=== PATIENT | female | born 1985 | race Caucasian/White ===

== ENCOUNTER 2019-06-11 03:37 | Emergency (ER) | payer OTHER, SELFPAY ==
--- NOTE | ~2019-06-11 | CT_ITS ---
EXAMINATION: CT abdomen pelvis wo con DATE: 06/11/2019 05:24 INDICATION: Left flank pain TECHNIQUE: Computed tomography (CT) of the abdomen and pelvis was performed without intravenous contr ast. Automated exposure control and iterative reconstruction technique were employed. Exam dose: 173 .21 mGy-cm total exam DLP. COMPARISON: None. FINDINGS: The lung bases are clear of infiltrate or consolidation. 3 mm middle lobe opacity (series 4 image 1) occasional very small peripheral pleural-based opacities are noted. Normal heart size. No pericardial or pleural effusion. Status post cholecystectomy. Surgical clips are noted adjacent to the left lobe of the liver. No hepa tic, pancreatic, and adrenal or renal space-occupying mass lesion is evident. No bile duct or pancrea tic duct dilatation. The spleen is not detected. No urinary tract calculus or obstructive uropathy is noted. There is air within the nondependent bladder lumen, possibly related to recent catheterization. Anteverted uterus. Normal caliber of the abdominal aorta. No intraperitoneal or retroperitoneal or pelvic mass lesion or adenopathy or ascites is evident. There is a prominent amount of fecal material in the colon. No bowel obstruction is evident. IMPRESSION: Air in the urinary bladder, likely due to recent catheterization; recent removal of left internal urinary stent No urinary tract calculus or obstructive uropathy is detected Status post cholecystectomy Probable splenectomy Reviewed, dictated and finalized at [facility] Reviewed, dictated and finalized at [facility]. 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
[2019-06-11 03:42] VITALS: BP 127/74; PULSE 121; RESP 18; TEMP 37.3; O2SAT 100
[2019-06-11 04:13] VITALS: BP 120/71; PULSE 115; RESP 20; TEMP 38.6; O2SAT 99
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
[2019-06-11] MEDS: ACETAMINOPHEN 500 MG TABLET 1000 MG PO (04:32)
[2019-06-11 05:02] VITALS: TEMP 38.4
[2019-06-11 05:03] LABS: Basophils Percent Auto 0.3 % (0.2-1.2); Eosinophils Absolute Auto 0.1 K/mm3 (0-0.3); Eosinophils Percent Auto 0.5 % (0-4.4); Hematocrit 27.9 % (37.0-47.0); Hemoglobin 9.3 g/dL (12.0-15.0); Immature Granulocyte Absolute 0.07 K/mm3 (0.00-0.031); Immature Granulocyte Percent A 0.5 % (0-0.5); Lymphocytes Absolute Auto 1.63 K/mm3 (0.9-3.2); Lymphocytes Percent Auto 11.4 % (18.3-44.2); Mean Corpuscular HGB Conc 33.3 g/dl (32-36); Mean Corpuscular Hemoglobin 29.3 pg (26-34); Mean Platelet Volume 9.2 fl (7.4-10.4); Monocytes Absolute Auto 1.2 K/mm3 (0.1-0.6); Monocytes Percent Auto 8.6 % (2.6-8.5); Neutrophils Absolute Auto 11.2 K/mm3 (1.3-6.7); Neutrophils Percent Auto 78.7 % (45.5-73.1); Platelet Count Result 428 k/mm3 (150-375); Red Blood Count 3.17 M/mm3 (4.2-5.4); Red Cell Distribution Width 13.4 % (11.5-14.5); White Blood Count 14.3 K/mm3 (4.5-10.0)
[2019-06-11 05:16] LABS: Lactic Acid Reflex 1.1 mmol/L (0.7-2.1)
[2019-06-11 05:25] LABS: Add Urine Microscopic? YES; Appearance Urine Clear (Clear); Bacteria Urine 4+ /hpf; Bilirubin Urine Negative (Negative); Blood Urine 1+ (Negative); Color Urine Yellow (Yellow); Glucose Urine UA Negative (Negative); Ketones Urine Negative (Negative); Leukocyte Esterase Ur 3+ LEU/UL (Negative); Mucus Urine Moderate /lpf; Nitrate Urine Positive (Negative); Protein Urine 2+ mg/dL (Negative); RBC Urine 0-2 /hpf (0-2); Specific Grav Ur 1.016 (1.001-1.035); Squamous Epithelial Cell Urine Rare /hpf (Few); Urobilinogen Urine Negative mg/dL (<2.0); WBC Urine >75 /hpf
--- NOTE | 2019-06-11 05:25 | PC.NURSE ---
Patient to radiology.
[2019-06-11 05:27] LABS: Alanine Aminotransferase 26 U/L (4-35); Albumin Level 3.4 g/dL (3.5-5.1); Alkaline Phosphatase 113 U/L (38-126); Aspartate Amino Transferase 26 U/L (14-36); Bilirubin,Total 0.2 mg/dL (0.2-1.3); Blood Urea Nitrogen 7 mg/dL (7-17); Calcium 8.4 mg/dL (8.4-10.2); Carbon Dioxide 22 mmol/L (22-30); Chloride 94 mmol/L (98-107); Estimated CRCL calculation 89 ml/min; Estimated Glomerular Filt Rate > 60; Glucose 106 mg/dL (65-105); Lipase 20 U/L (23-300); Potassium 3.9 mmol/L (3.4-5.0); Sodium 129 mmol/L (137-145)
[2019-06-11] MEDS: MORPHINE SULFATE 4 MG/ML INJ IV PUSH (05:37)
[2019-06-11] MEDS: ONDANSETRON INJ 4 MG/2 ML VIAL IV PUSH (05:37)
[2019-06-11 05:48] VITALS: BP 114/65; PULSE 117; RESP 18; TEMP 38.9; O2SAT 100
[2019-06-11 06:07] VITALS: TEMP 38.9
[2019-06-11] MEDS: CIPROFLOXACIN 400 MG/D5W 200ML 200 ML 200 MG IVPB (06:16)
== END 2019-06-11 07:26 | disposition home or self-care (01) ==
PROVIDERS: Emergency Provider Emergency Medicine; PCP Nurse Practitioner Family
DX: N12 Tubulo-interstitial nephritis, not specified as acute or chronic (principal); F17.210 Nicotine dependence, cigarettes, uncomplicated; Z90.81 Acquired absence of spleen; Z98.2 Presence of cerebrospinal fluid drainage device; G93.2 Benign intracranial hypertension; K21.9 Gastro-esophageal reflux disease without esophagitis; Z86.2 Personal history of diseases of the blood and blood-forming organs and certain disorders involving the immune mechanism; F41.9 Anxiety disorder, unspecified; F32.9 Major depressive disorder, single episode, unspecified; K76.9 Liver disease, unspecified; G47.419 Narcolepsy without cataplexy
CPT/HCPCS: 36415; 74176; 80053; 81001; 81025; 83605; 83690; 85025; 87040; 87077; 87086; 87088; 87186; 87804; 96365; 96375; 99284; A9270; J0744; J2270; J2405

== ENCOUNTER 2019-12-06 16:11 | Emergency (ER) | payer OTHER, SELFPAY ==
--- NOTE | ~2019-12-06 | XR_ITS ---
EXAMINATION: XR hip RT 2V w AP pelvis EXAM DATE: 12/06/2019 17:52 INDICATION: Initial encounter following injury, with pain of the right hip. TECHNIQUE: Right hip frontal, 'frog leg' projections for interpretation. Frontal projection pelvis. There is no prior study for comparison. FINDINGS: The hip joints are unremarkable. There is a catheter overlying the right side of the abdome n and with tip in the left side of the pelvis. There are no acute pelvic or right hip fractures or di slocations identified. There is no subcutaneous gas. The soft tissue is unremarkable. IMPRESSION: No acute osseous findings. Reviewed, dictated and finalized at [facility]. IMPRESSION: No acute osseous findings.
[2019-12-06 16:21] VITALS: BP 106/71; PULSE 106; RESP 18; TEMP 37.2; O2SAT 100
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
== END 2019-12-06 18:49 | disposition home or self-care (01) ==
PROVIDERS: Emergency Provider General Practice; PCP Nurse Practitioner Family
DX: M25.551 Pain in right hip (principal); D64.9 Anemia, unspecified; F41.9 Anxiety disorder, unspecified; F32.9 Major depressive disorder, single episode, unspecified; K21.9 Gastro-esophageal reflux disease without esophagitis
CPT/HCPCS: 73502; 81025; 99283